=== PATIENT | female | born 1950 | race Caucasian/White ===

== ENCOUNTER → 2020-10-25 | Outpatient (CLI) | payer MEDICARE | LOC: LAB 10:01 | DX: D49.2 Neoplasm of unspecified behavior of bone, soft tissue, and skin (principal) | CPT/HCPCS: 36415; 82565; 84520 ==

== ENCOUNTER → 2020-10-25 | Outpatient (CLI) | payer MEDICARE | LOC: EMI 10:46 | DX: D49.2 Neoplasm of unspecified behavior of bone, soft tissue, and skin (principal); M51.26 Other intervertebral disc displacement, lumbar region; M48.061 Spinal stenosis, lumbar region without neurogenic claudication | CPT/HCPCS: 36415; 72158; 82565; 84520; A9577 ==

== ENCOUNTER → 2021-05-16 | Outpatient (CLI) | payer MEDICARE | LOC: KOH-I 08:36 | DX: M25.551 Pain in right hip (principal) | CPT/HCPCS: 73502 ==

== ENCOUNTER → 2021-07-03 | Outpatient (CLI) | payer MEDICARE | LOC: KOH-I 08:27 | DX: M48.061 Spinal stenosis, lumbar region without neurogenic claudication (principal); M47.816 Spondylosis without myelopathy or radiculopathy, lumbar region | CPT/HCPCS: 72100 ==

== ENCOUNTER 2022-01-11 10:10 | Emergency (ER) | payer MEDICARE | END 2022-01-11 13:40 | disposition home or self-care (01) | LOC: ER1 10:10 | DX: S06.0X9A Concussion with loss of consciousness of unspecified duration, initial encounter (principal); I10 Essential (primary) hypertension; J45.909 Unspecified asthma, uncomplicated; W19.XXXA Unspecified fall, initial encounter | CPT/HCPCS: 70450; 99284 ==